=== PATIENT | female | born 1960 | race Caucasian/White ===

== ENCOUNTER 2023-03-02 16:58 | Emergency (ER) | payer MEDICAID, SELFPAY ==
[2023-03-02 17:31] VITALS: BP 103/66; PULSE 92; RESP 18; TEMP 37.3; O2SAT 97
--- NOTE | 2023-03-02 17:35 | EKG12_ITS ---
Test Reason : WEAKNESS Blood Pressure : / mmHG Vent. Rate : 081 BPM Atrial Rate : 081 BPM P-R Int : 128 ms QRS Dur : 118 ms QT Int : 394 ms P-R-T Axes : 087 079 -63 degrees QTc Int : 457 ms Normal sinus rhythm Left ventricular hypertrophy with QRS widening and repolarization abnormality ( [place] product ) Cannot rule out Septal infarct , age undetermined Abnormal ECG Confirmed by JACK JOEL, BERT ([id number]), newspaper editor managing MALIK BAILEY ([id number]) on 03/08/2023 1:58:45 PM Referred By: Confirmed By:LA SANTIAGO MD
--- NOTE | 2023-03-02 17:57 | NURSING ---
NO OLD EKG
[2023-03-02 18:09] LABS: Absolute Lymphocyte Count 1.16 X10^3/uL (0.83-4.51); Absolute Neutrophil Count 3.8 X10^3/uL (2.0-7.7); Basophil# 0.07 X10^3/uL; Basophil% 1.2 % (0-1); Eosinophil# 0.06 X10^3/uL; Hematocrit 35.4 % (37-47); Hemoglobin 12.5 g/dL (12.0-15.0); Lymphocyte # 1.16 X10^3/ul (0.83-4.51); Lymphocyte % 19.7 % (19-41); Mean Corp Hgb Conc 35.3 g/dL (32-36); Mean Corpuscular Hgb 34.7 pg (27.0-32.0); Mean Corpuscular Volume 98.3 fL (81-99); Mean Platelet Vol. 9.5 fl (6.2-12.0); Monocyte# 0.73 X10^3/uL; Monocyte% 12.4 % (0-10); NRBC Flagged by Analyzer 0 % (0-5); Neutrophil # 3.84 X10^3/uL (2.7-7.7); Neutrophil % 65.2 % (47-70); Platelet Count 166 K/mm3 (150-450); RBC Distribution Width CV 12.4 % (11.6-14.6); RBC Distribution Width SD 44.9 fl (35.1-43.9); White Blood Count 5.9 K/mm3 (4.4-11.0)
[2023-03-02 18:27] LABS: Anion Gap 5 (5-15); BUN 12 mg/dL (7-18); BUN/Creat Ratio 17.5 RATIO (10-20); Calcium,Total 8.8 mg/dL (8.5-10.1); Chloride 96 mmol/L (98-107); Creatinine, Serum 0.69 mg/dL (0.55-1.02); EST Glomerular Filtration Rate 91 mL/min (>60); Est Glom Filt Rate - Afr Amer 111 mL/min (>60); Glucose 97 mg/dL (74-106); Potassium 4.2 mmol/L (3.5-5.1); Sodium Level 132 mmol/L (136-145); Troponin-I HS 11 pg/mL (3.0-54.0)
--- NOTE | 2023-03-02 18:57 | ED.VIS.DYS ---
HPI History of Present Illness Chief Complaint: Shortness of Breath Narrative Narrative: 62-year-old female past medical history of COPD, hypertension, presents with her friend because of shakiness, near syncope, chest pressure, and dyspnea on exertion. She is a smoker. She states that she went to her friend's house at 1230 this afternoon, approximately 6 hours ago. They went to 1 store and she felt very shaky, short of breath, and had pressure in her chest. She denies nausea or vomiting. No diaphoresis, but felt very shaky and short of breath with dyspnea on exertion. She denies any other symptoms, except for occasional cough. No dysuria or hematuria. [facility] Medical History (Updated 03/02/23 @ 22:21 by Jonatan Campbell MD) Congestive heart failure (CHF) COPD (chronic obstructive pulmonary disease) Allergy/AdvReac Type Severity Reaction Status Date / Time No Known Allergies Allergy Verified 03/02/23 17:31 Social History Smoking Status: Current every day smoker tobacco type: cigarettes ROS ROS ED ROS Narrative Constitutional: No fever, no chills. HEENT: No sore throat. No neck pain. No loss of vision. No rhinorrhea. Cardiovascular: Positive chest pressure/chest pain. No palpitations. No pedal edema. Respiratory: Occasional cough, dyspnea on exertion and shortness of breath. Abdominal: No abdominal pain. No nausea. No vomiting. Genitourinary: No dysuria. No hematuria. Musculoskeletal: No myalgias. No arthralgias. Neurologic: No headaches. No dizziness. No lightheadedness. Positive shakiness while in store. Skin: No rash. No change in color. Psychiatric: No depression. No anxiety. EXAM Physical Exam Narrative Exam Narrative: Afebrile. Vital signs noted. HEENT: Normocephalic. Atraumatic. PERRL, EOMI. Neck soft and supple. No point tenderness or step off. Cardiovascular: Regular rate and rhythm. No murmurs, rubs, or gallops appreciated. Respiratory: No tachypnea. Lungs clear to auscultation bilaterally. Gastrointestinal: Abdomen soft, nontender, with normoactive bowel sounds. No rebound or guarding. Neurological: Awake. Alert. Nonfocal, nonlateralizing. Skin: No rash. Normal color. No pallor. Musculoskeletal: No pedal edema. Full range of motion extremities. Const Vital Signs: 03/02/23 17:31 03/02/23 19:10 03/02/23 19:10 Temperature 99.2 F H Temperature Source Temporal Pulse Rate 92 90 Respiratory Rate 18 18 Respiratory Effort Respiratory Pattern Blood Pressure 103/66 118/74 Blood Pressure Mean 78 88 Pulse Ox 97 96 96 Oxygen Delivery Method Room Air Room Air Room Air 03/02/23 19:10 03/02/23 19:13 03/02/23 19:48 Temperature Temperature Source Pulse Rate Respiratory Rate Respiratory Effort Short of Breath Respiratory Pattern Normal Normal Blood Pressure Blood Pressure Mean Pulse Ox 98 Oxygen Delivery Method Room Air 03/02/23 20:01 03/02/23 21:22 Temperature Temperature Source Pulse Rate 86 89 Respiratory Rate 16 18 Respiratory Effort Respiratory Pattern Blood Pressure 122/76 H 107/72 Blood Pressure Mean 91 83 Pulse Ox 96 92 Oxygen Delivery Method Room Air Room Air MDM MDM MDM Narrative Medical decision making narrative: Nursing protocol orders were started. In the differential diagnosis would be ACS. She has elevated temperature of 99.2 degrees. She may have COVID or influenza, and lower on the differential is pneumonia. Chest x-ray in 1 view will be obtained. Chest pain work-up had been initiated. She is feeling improved. EKG obtained and interpreted by myself independently as normal sinus rhythm at 81 bpm without ectopy or acute ST changes. No STEMI. She does have LVH by voltage. I reviewed her initial laboratory work and she has normal white count of 5.9, hemoglobin normal at 12.5, hematocrit slightly low at 35.4, platelet count normal at 166, sodium is slightly low at 132 but she has had hyponatremia in the past. She will be bolused normal saline 1 L intravenously, potassium is normal with a chloride low at 96, she may be slightly dehydrated as a cause of her shakiness. Glucose appropriately elevated at 97 with a normal anion gap of 5, initial high-sensitivity troponin is 11. I will repeat her high-sensitivity troponin to help rule out ACS. I did add a UA and a COVID and influenza swab because of her slightly elevated temperature. I did discuss smoking cessation with her, but she did state that she probably would not quit. Reviewed her further laboratory work and her second high-sensitivity troponin is 16. It is normal, she does not have a significant delta troponin and I do not feel she requires admission at this time. In review of her urinalysis is mildly cloudy, and she has 5-10 WBCs, but she is not having dysuria or hematuria. She does not have a significant white count. Hence, I will send it for urine culture and defer antibiotics to culture results. I interpreted her chest x-ray in 1 view independently and see no evidence of an acute consolidation. I do not feel antibiotics are indicated. I reviewed the radiology report which states that there is a 2 cm mass in the left middle lung field which would require CT, but I feel this can be done as an outpatient. She was informed of the mass and the need for follow-up, and acknowledges an understanding. I reviewed her respiratory swabs which are negative for COVID and influenza a and B. At this point in time, she is resting comfortably and I feel she can be discharged safely home with follow-up. Return instructions to the emergency department were reviewed. Disposition is discharged home in stable condition. History & Record Review Discussion w/independent historian: Patient and Friend Additional record(s) reviewed:: Prior ED visit and Prior labs Lab Data Attestation: I reviewed the patient's lab results. Labs: Laboratory Results - last 24 hr 03/02/23 03/02/23 03/02/23 17:55 20:05 20:30 WBC 5.9 RBC 3.60 L Hgb 12.5 Hct 35.4 L MCV 98.3 MCH 34.7 H MCHC 35.3 RDW Std Deviation 44.9 H RDW Coeff of [place] 12.4 Plt Count 166 MPV 9.5 Immature Gran % (Auto) 0.500 Neut % (Auto) 65.2 Lymph % (Auto) 19.7 [place] % (Auto) 12.4 H Eos % (Auto) 1.0 Baso % (Auto) 1.2 H Absolute Neuts (auto) 3.8 Absolute Lymphs (auto) 1.16 Nucleated RBC % 0 Sodium 132 L Potassium 4.2 Chloride 96 L Carbon Dioxide 31.0 Anion Gap 5 BUN 12 Creatinine 0.69 Est GFR (MDRD) Af Amer 111 Est GFR (MDRD) Non-Af 91 BUN/Creatinine Ratio 17.5 Glucose 97 Calcium 8.8 Troponin I High Sens 11 16 Urine Color Yellow Urine Clarity Cloudy Urine pH 6.5 Ur Specific [place] 1.015 Urine Protein 15 H Urine Glucose (UA) Normal Urine Ketones 15 H Urine Occult Blood 10 H Urine Nitrite Negative Urine Bilirubin 1 H Urine Urobilinogen 8 H Ur Leukocyte Esterase 25 H Urine RBC 0-5 SEEN Urine WBC 5-10 SEEN Ur Squamous Epith Cells 0-5 SEEN Urine Bacteria 2+ Hyaline Casts 0-5 SEEN Urine Mucus 0 SEEN Radiography Chest X-Ray - ED: 1 View and Read by ED Physician Diagnostic Testing: Clinical Impression(s) from Imaging Studies Chest X-Ray 03/02/23 19:38 IMPRESSION: 2 cm mass of the mid left lung. CT is indicated. COPD. Electronically Signed: Weston Xiong MD at 20:08 EDT , Discharge Plan Triage Chief Complaint: Shortness of Breath Other Complaint: Weakness ED Provider: Jonatan Campbell Dx/Rx/DC Orders Clinical Impression: Shortness of breath, Mass of left lung, Chest pain Instructions: ED Chest Pain, Uncertain Cause, ED Dyspnea Primary Care Provider: Evelin Mckenna Referrals: Evelin Mckenna, [Primary Care Provider] - 3-5 Days Activity Restrictions/Additional Instructions: You have an abnormal chest x-ray. There is a 2 cm mass noted in the left lung field which will require outpatient imaging with a CT scan. Follow-up with your primary care provider for this and regarding her chest pain. Return with shortness of breath, increased pain, new or worsening symptoms. Disposition Disposition: Home, Self Care
[2023-03-02 19:10] VITALS: BP 118/74; PULSE 90; RESP 18; O2SAT 96
--- NOTE | 2023-03-02 19:38 | RAD_ITS ---
STUDY: X-RAY CHEST REASON FOR EXAM: Female, 62 years old. shortness of breath TECHNIQUE: Single AP portable view of the chest. COMPARISON: None. FINDINGS: There is hyperinflation of the lungs consistent with chronic obstructive lung disease (COPD). 2 cm lobulated mass in the lateral mid left lung. CT of the chest is indicated. No infiltrates. No effusions. There is no demonstrated pleural abnormality. Normal size heart. Normal mediastinum and alejandro. Normal visualized pulmonary arteries. Normal visualized aortic arch and descending thoracic aorta. Normal visualized thoracic spine. Normal visualized ribs, clavicles, and shoulders. There is no demonstrated abnormality of the visualized soft tissue structures of the upper abdomen. RAD/Chest 1 View (Portable) IMPRESSION: 2 cm mass of the mid left lung. CT is indicated. COPD. Electronically Signed: Weston Xiong MD at 20:08 EDT ,
[2023-03-02 19:48] VITALS: O2SAT 98
[2023-03-02 19:49] VITALS: BMI 16.5
[2023-03-02] MEDS: 0.9% Normal Saline (1000mL) 1,000 ML 999 ML IV (19:57)
[2023-03-02 20:01] VITALS: BP 122/76; PULSE 86; RESP 16; O2SAT 96
[2023-03-02 20:13] LABS: Mucous, Urine 0 SEEN /hpf (<or=2+)
[2023-03-02 20:16] LABS: Color, Urine Yellow (Yellow); Glucose, Dipstick Normal (Normal); Ketone-Dipstick 15 mg/dl (Negative); Leukocyte Esterase-Dipstick 25 /ul (Negative); Nitrite-Dipstick Negative (Negative); Occult Blood-Urine 10 /ul (Negative); Protein-Dipstick 15 mg/dl (Negative); Specific Gravity, Urine 1.015 (1.002-1.030); Urine Clarity Cloudy (Clear); Urine Urobilinogen 8 mg/dl (Normal); Urine pH 6.5 (5.0 - 8.0)
[2023-03-02 20:17] LABS: Urine Bilirubin Dipstick 1 mg/dL (Negative)
[2023-03-02 20:33] LABS: Red Blood Cells-Urine 0-5 SEEN /hpf (0-5); Squamous Epithelial Cells - UA 0-5 SEEN /hpf (5-10); White Blood Cells 5-10 SEEN /hpf (0-5)
[2023-03-02 20:34] LABS: Bacteria 2+ /hpf (None Seen); Hyaline Cast 0-5 SEEN /lpf (0-5)
[2023-03-02 21:10] LABS: Troponin-I HS 16 pg/mL (3.0-54.0)
[2023-03-02 21:22] VITALS: BP 107/72; PULSE 89; RESP 18; O2SAT 92
[2023-03-02 22:29] VITALS: BP 105/52; PULSE 87; RESP 18; O2SAT 97
== END 2023-03-02 22:54 | disposition home or self-care (01) ==
PROVIDERS: Emergency Provider Emergency Medicine; Visit Provider Emergency Medicine
DX: E86.0 Dehydration (principal); J44.9 Chronic obstructive pulmonary disease, unspecified; I50.9 Heart failure, unspecified; I11.0 Hypertensive heart disease with heart failure; R55 Syncope and collapse; R07.89 Other chest pain; R91.8 Other nonspecific abnormal finding of lung field; Z20.822 Contact with and (suspected) exposure to COVID-19; F17.210 Nicotine dependence, cigarettes, uncomplicated; R06.02 Shortness of breath
CPT/HCPCS: 71045; 80048; 81001; 84484; 85025; 87077; 87086; 87088; 87186; 87428; 93005; 94760; 96360; 99285; A4216

== ENCOUNTER → 2025-02-23 | Outpatient (CLI) | payer MEDICARE, MEDICAID, SELFPAY ==
[2025-02-23 12:25] LABS: Hematocrit 36.3 % (37-47); Hemoglobin 11.2 g/dL (12.0-15.0); Immature Granulocytes Count 0.030 X10^3/uL (0.0-0.0); Mean Corp Hgb Conc 30.9 g/dL (32-36); Mean Corpuscular Volume 78.1 fL (81-99); Mean Platelet Vol. 9.7 fl (6.2-12.0); NRBC Flagged by Analyzer 0 % (0-5); Platelet Count 336 K/mm3 (150-450); RBC Distribution Width CV 16.7 % (11.6-14.6); RBC Distribution Width SD 47.1 fl (35.1-43.9); Red Blood Count 4.65 M/mm3 (4.2-5.4); White Blood Count 9.8 K/mm3 (4.4-11.0)
[2025-02-23 13:19] LABS: AST(SGOT) 26 U/L (<=31); Alanine Aminotransfer ALT/SGPT 8 U/L (<=34); Albumin, Serum 3.4 g/dL (3.4-4.8); Alkaline Phosphatase 156 U/L (35-104); Anion Gap 13 (5-15); BUN 15 mg/dL (4-19); BUN/Creat Ratio 19.8 RATIO (10-20); Calcium,Total 9.2 mg/dL (7.6-11.0); Carbon Dioxide 22.9 mmol/L (21.0-32.0); Chloride 103 mmol/L (98-108); Globulin 3.5 g/dL (2.2-4.2); Glucose 107 mg/dL (70-99); Potassium 4.6 mmol/L (3.3-5.1); Pro- Brain NATRIURETIC PEPTIDE 8121 pg/mL (<=900)
== END | disposition home or self-care (01) ==
LOC: LAB 11:09
DX: R06.02 Shortness of breath (principal)
CPT/HCPCS: 36415; 80053; 83880; 84443; 85025